=== PATIENT | female | born 1990 | race Caucasian/White ===

== ENCOUNTER 2016-12-14 17:20 | Emergency (ER) | payer SELFPAY ==
--- NOTE | 2016-12-14 17:39 | ERNOTE ---
Lower Extremity HPI - General Lower Extremities Pain: foot: left, 2nd toe: left - at the base of the toe Time Seen by Provider: 12/14/16 17:33 Source: patient Exam Limitations: no limitations - Immun/Allergies/Home Medications Immunizations: IMMUNIZATION HX Immunizations Up to Date Yes History of Influenza Vaccine No Allergies/Adverse Reactions: Allergies Allergy/AdvReac Type Severity Reaction Status Date / Time No Known Allergies Allergy Verified 12/14/16 17:30 Home Medications: HOME MEDICATIONS Naproxen [Naprosyn] 500 mg PO BID #60 tablet 12/14/16 [Last Taken Unknown] Sulfamethoxazole/Trimethoprim [Bactrim Ds] 1 tab PO BID #20 tab 12/14/16 [Last Taken Unknown] - History of Present Illness Narrative: Patient isn't sure what happened to the left foot at the base of the second and somewhat the third toe on the left foot. Possibly that she got bit by an insect. Patient denies any significant trauma. Occurred: other - past 2-3 days Location of Incident: home Method of Injury: Reports: no apparent injury Review of Systems - Review of Systems Constitutional: Present: See HPI EYE: Present: no symptoms reported ENT: Present: no symptoms reported Respiratory: Present: no symptoms reported Cardiology: Present: no symptoms reported Gastrointestinal/Abdominal: Present: no symptoms reported Genitourinary: Present: no symptoms reported Musculoskeletal: Present: joint pain Skin: Present: other - erythema around the affected toe Neurological: Present: no symptoms reported Endocrine: Present: no symptoms reported Hematologic/Lymphatic: Present: no symptoms reported Psych: Present: no symptoms reported - Patient's Past Medical History Patient History - Medical: No pertinent hx Patient History - Cardiac/Respiratory: No pertinent hx Patient History - Cancer: No Hx of Cancer Patient History - Surgical Procedures: Patient History - Other: None LMP (females 10-50): last week - Social History Living Situations: significant other Abuse History: No History of abuse Psych History: No pertinent hx Smoking Status: Current every day smoker Have you smoked in the past 12 months: Yes Do you dip or chew tobacco: No Alcohol Use: rarely Drug Use: none - Immunizations Immunizations Up to Date: Yes History of Influenza Vaccine: No Physical Exam - Physical Exam General Appearance: Present: wd/wn, alert, moderate distress Eye Exam: Normal inspection: bilateral, PERRL: bilateral Ears, Nose, Throat: Present: normal ENT inspection, H, normal pharynx Neck: Present: normal inspection, nontender Respiratory: Present: no respiratory distress, normal breath sounds, no accessory muscle use, chest nontender, lungs clear Cardiovascular/Chest: Present: regular rate, rhythm, no murmur, normal peripheral pulses Gastrointestinal/Abdominal: Present: normal bowel sounds, nontender, nondistended, soft, no organomegaly Rectal Exam: Present: deferred Back Exam: Present: normal inspection, normal range of motion Extremity Exam: Present: decreased range of motion, joint redness, joint swelling, extremity edema Neurological Exam: Present: alert, oriented, normal mood/affect Skin Exam: Present: normal color, warm/dry Lymphatic Exam: Present: no adenopathy ED Progress - Vital Signs Patient's Vital Signs:: I have reviewed the patient's vital signs. Vital Signs: Vital Signs 12/14/16 17:25 Temperature 36.8 C Pulse Rate 94 Respiratory 16 Rate O2 Sat by Pulse 99 Oximetry - X-Ray X-Ray #1 X-Ray: foot Interpretation: Reviewed by me - Progress/Reassessment Chief Complaint: Foot Injury/Pain Plan - Plan Plan: No obvious bony abnormality was noted on x-ray. Patient may have a very small area of cellulitis at the base of the second third toe on the left foot, and we will try a brief course of antibiotics and a nonsteroidal for any discomfort. Patient has no local doctor and she was encouraged to try to find one. Departure Clinical Impression: Cellulitis Qualifiers: Site of cellulitis: extremity Site of cellulitis of extremity: toe Laterality: left Qualified Code(s): L03.032 - Cellulitis of left toe - Departure Disposition: Home self-care Condition: Good Instructions: Cellulitis, Adult, [id number] Prescriptions: Naproxen [Naprosyn] 500 mg PO BID #60 tablet Sulfamethoxazole/Trimethoprim [Bactrim Ds] 1 tab PO BID #20 tab
--- OUTSIDE RECORDS SUMMARY | 2016-12-14 17:41 | XMS REPORT | Continuity of Care Document ---
:1990 Author Organization [email or web address] Address [place] [address] Care Team Providers Name Role Phone Autumn Fernandes Primary Care Provider [phone] Source Comments This disclosure is being made pursuant to the [employer] program and maynot contain all information available regarding this patient.[email or web address] Active Allergies and Adverse Reactions No Known Allergies Current Medications Be aware that medications may not be up to date as of this document. Alwaysverify current medications with the patient. Prescription Sig. Disp. Refills Start Date End Date Status ADDERALL XR, 30MG, 30 Take 30 mg by 0 09/24/2014 Active MG 24 hr capsule mouth every morning. ALPRAZolam (XANAX) 1 Take 1 tablet by 30 tablet 0 02/24/2015 Active MG tablet mouth 3 (three) times daily as needed. sulfamethoxazole-trime Take 1 tablet by 20 tablet 0 05/27/2015 Active thoprim (BACTRIM DS) mouth 2 (two) 800-160 MG per tablet times daily. 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 Tobacco use disorder 05/21/2014 Overview: Identified By: Autumn Fernandes Insomnia 05/22/2012 Overview: Identified By: Autumn Fernandes Headache 09/28/2011 Overview: Identified By: Nohelia Farr Depressive disorder 04/29/2011 Overview: Identified By: Hortensia Chong Routine general medical examination at a health care facility 07/23/2010 Social History Tobacco Use Types Packs/Day Years Used Date Current Every Day Smoker Smokeless Tobacco: Never Used Alcohol Use Drinks/Week oz/Week Comments Yes Last Filed Vital Signs Vital Sign Reading Time Taken Blood Pressure 100/60 05/27/2015 1:48 PM [facility] Pulse 122 05/27/2015 1:48 PM [facility] Temperature 37 C (98.6 F) 05/27/2015 1:48 PM [facility] Respiratory Rate 20 05/27/2015 1:48 PM [facility] Height 1.549 m (5' 1") 05/27/2015 1:48 PM [facility] Weight 52.164 kg (115 lb) 05/27/2015 1:48 PM [facility] Body Mass Index 21.74 05/27/2015 1:48 PM [facility] Oxygen Saturation 95% 05/27/2015 1:48 PM [facility] Plan of Care Health Maintenance Due Date Last Done Comments Pneumococcal Medium Risk 19-64 yo (1 of 1 - PPSV23) 10/18/2007 Tetanus/Pertussis (1 - Tdap) 10/18/2007 Pap Smear 2009 Influenza Immunization (#1) 2016 Results from Last 3 Months Not on file
--- OUTSIDE RECORDS SUMMARY | 2016-12-14 17:41 | XMS REPORT | Continuity of Care Document ---
:1990 Author Organization [facility] ([facility]) Address [address] [place] [address] Phone [phone] Care Team Providers Name Role Phone Autumn Fernandes Primary Care Provider [phone] Source Comments This disclosure is being made pursuant to the Care Everywhere program, applicable federal and state laws, and may not contain all informaitonavailable regarding this patient.[facility] ([facility]) Active Allergies and Adverse Reactions Not on File Current Medications Not on file Active Problems Problem Noted Date Palpitations 01/09/2004 Other dyspnea and respiratory abnormality 01/09/2004 Social History Tobacco Use Types Packs/Day Years Used Date Never Assessed Last Filed Vital Signs Vital Sign Reading Time Taken Blood Pressure - - Pulse - - Temperature - - Respiratory Rate - - Height 1.535 m (5' 0.43") 12/13/2003 6:14 AM CDT Weight 57.997 kg (127 lb 13.8 oz) 12/14/2003 9:00 AM CDT Body Mass Index 24.61 12/14/2003 9:00 AM CDT Oxygen Saturation - - Plan of Care Health Maintenance Due Date Last Done Comments Hepatitis B Vaccine (1 of 3 - Primary Series) 1990 Tdap Vaccine 10/18/1999 Cervical Cancer Screening 2006 Lipid Disorder Screening 2006 MMR Vaccine 2006 Td Vaccine 2006 Varicella Vaccine (1 of 2 - Adult - No Evidence of 2006 Immunity) Influenza Vaccine: Seasonal (#1) 02/23/2016 Results from Last 3 Months Not on file
--- OUTSIDE RECORDS SUMMARY | 2016-12-14 17:42 | XMS REPORT | CCD ---
:1990 Author Name ELIANA CORNEJO Address [address] [facility] Unavailable [place], [place] [id number] Care Team Providers Name Role Phone KAMILLE CORTES Attending Physician Unavailable KAMILLE CORTES Er Physician 1 Unavailable Vital Signs Unknown or Not Available. Allergies Allergy Code Allergy Type Reaction Status NO KNOWN DRUG ALLERGIES - NKDA 0 Drug allergy Active Procedures Procedure Code Procedure Type Date ABD 2 VWS INC CHEST 1VW [id number] SNOMED CT 11/29/2015 History of Immunizations Immunization Code Date DTP 05/12/1989 DTP 02/24/1989 DTP 1988 DTP 05/26/1990 OPV 02 02/23/1994 OPV 05/12/1989 OPV 02/24/1989 OPV 02 1988 MMR 03 02/23/1994 MMR 03 01/26/1990 Hep B, adolescent or pediatric 08 11/05/2004 Hep B, adolescent or pediatric 08 05/21/2004 Hep B, adolescent or pediatric 08 04/09/2004 Hib, unspecified formulation 17 04/09/2004 Hib, unspecified formulation 17 02/02/1990 DT (pediatric) 28 09/23/2004 DTaP, unspecified formulation 107 02/23/1994 no vaccine administered 998 1988 Problems Unknown or Not Available. Results COMPREHENSIVE METABOLIC PANEL - Collect Date/Time: 11/29/2015 10:30 Test Name Code Test Result Test Units Test Ref Range GLUCOSE 101 mg/dL L=74 H=106 SODIUM 140 mmol/L L=136 H=145 POTASSIUM 4.2 mmol/L L=3.5 H=5.1 CHLORIDE 104 mmol/L L=98 H=107 CO2 27 mmol/L L=21 H=32 BUN 7.0 mg/dL L=7.0 H=18.0 CREATININE 0.7 mg/dL L=0.6 H=1.0 BUN/CREAT 10.0 L=7.6 H=21.2 CALCIUM 8.9 mg/dL L=8.6 H=10.1 TOTAL BILI 0.3 mg/dL L=0.2 H=1.0 TOTAL PROTEIN 8.2 g/dL L=6.4 H=8.2 ALBUMIN 4.2 g/dL L=3.4 H=5.0 A/G RATIO 1.0 ALKALINE PHOS 68 IU/L L=50 H=136 AST/SGOT 10 IU/L L=15 H=37 ALT/SGPT 28 IU/L L=12 H=78 ANION GAP 12.8 mmol/L L=7.0 H=16.0 AGE 25 YEARS GFR 106.69 ml/min CRP - Collect Date/Time: 11/29/2015 10:30 Test Name Code Test Result Test Units Test Ref Range CRP 0.9 mg/dL L=0.2 H=0.9 LACTIC ACID, PLASMA - Collect Date/Time: 11/29/2015 10:30 Test Name Code Test Result Test Units Test Ref Range LACTIC ACID 0.7 mmol/L L=0.4 H=2.0 LIPASE - Collect Date/Time: 11/29/2015 10:30 Test Name Code Test Result Test Units Test Ref Range LIPASE 67 U/L L=73 H=393 MAGNESIUM, SERUM OR PLASMA - Collect Date/Time: 11/29/2015 10:30 Test Name Code Test Result Test Units Test Ref Range MAGNESIUM 1.8 mg/dL L=1.8 H=2.4 RAPID URINE DRUG SCREEN - Collect Date/Time: 11/29/2015 10:30 Test Name Code Test Result Test Units Test Ref Range CANNABINOIDS (THC) NEGATIVE N/A NORMAL:Negative OPIATES POSITIVE N/A NORMAL:Negative AMPHETAMINES NEGATIVE N/A NORMAL:Negative COCAINE NEGATIVE N/A NORMAL:Negative TRICYCLIC ANTIDEPRES NEGATIVE N/A NORMAL:Negative BARBITURATES NEGATIVE N/A NORMAL:Negative METHADONE NEGATIVE N/A NORMAL:Negative BENZODIAZEPINES NEGATIVE N/A NORMAL:Negative PROPOXYPHENE NEGATIVE N/A NORMAL:Negative METHAMPHETAMINE NEGATIVE N/A NORMAL:Negative CBC W/DIFF - Collect Date/Time: 11/29/2015 10:30 Test Name Code Test Result Test Units Test Ref Range WBC 6690-2 9.7 K/uL L=3.2 H=10.0 RBC 789-8 4.38 M/uL L=4.00 H=5.20 HEMOGLOBIN 718-7 13.7 g/dL L=12.1 H=15.6 HEMATOCRIT 40.3 % L=35.0 H=47.0 MCV 92.0 fL L=81.0 H=101 MCH 31.3 PG L=26.0 H=38.0 MCHC 34.0 G/DL L=31.0 H=37.0 RDW-SD 41.4 FL L=37.0 H=54.0 RDW-CV 12.6 % L=11.0 H=16.0 PLATELETS 777-3 324 K/UL L=140 H=380 MPV 8.9 FL L=9.0 H=13.0 %GRAN 74.4 % L=0.0 H=75.0 %LYMPH 18.6 % L=0.0 H=50.0 %MONO 5.5 % L=0.0 H=14.0 %EOS 1.4 % L=0.0 H=6.0 %BASO 0.1 % L=0.0 H=1.0 #GRAN 7.18 K/UL L=1.80 H=7.80 #LYMPH 1.80 K/UL L=0.30 H=4.00 #MONO 0.53 K/UL L=0.00 H=0.70 #EOS 0.14 K/UL L=0.00 H=0.40 #BASO 0.01 K/UL L=0.00 H=0.10 SLIDE REVIEWED? NOT INDICATED N/A MANUAL DIFF NOT INDICATED N/A UA W/MICROSCOPIC EXAM - Collect Date/Time: 11/29/2015 10:30 Test Name Code Test Result Test Units Test Ref Range COLOR UR Yellow N/A NORMAL:YELLOW CLARITY UR Clear N/A NORMAL:CLEAR SP GRAV UR 1.025 N/A NORMAL:1.000-1.030 PH UR 5.0 N/A NORMAL:5.0-8.5 PROTEIN UR Negative N/A NORMAL:NEGATIVE GLUCOSE UR Negative N/A NORMAL:NEGATIVE KETONE UR Negative N/A NORMAL:NEGATIVE BILIRUBIN UR Negative N/A NORMAL:NEGATIVE BLOOD UR Negative N/A NORMAL:NEGATIVE LEUK UR Negative N/A NORMAL:NEGATIVE NITRITE UR Negative N/A NORMAL:NEGATIVE MICRO SEE BELOW N/A RBC/hpf 0 N/A NORMAL:0-5/hpf WBC/hpf 0-1 N/A NORMAL:0-10/hpf EPI UR 10-20 N/A NORMAL:NONE SEEN BACTERIA UR RARE N/A NORMAL:NONE SEEN MUCOUS NONE SEE N/A NORMAL:NONE SEEN CAST NONE SEE N/A CRYSTALS NONE SEE N/A CULTURE? NO N/A HCG QUALITATIVE, URINE - Collect Date/Time: 11/29/2015 10:30 Test Name Code Test Result Test Units Test Ref Range BHCG, URINE NEGATIVE N/A Active Medications Unknown or Not Available. Medications Administered During Visit Unknown or Not Available. Encounters Encounter Diagnosis Diagnosis Code Start Date Nausea with vomiting, unspecified R112 11/29/2015 Social History Smoking Status Code Start Date End Date Never smoker [id number] Patient Decision Aids Unknown or Not Available. Discharge Instructions You were admitted to [facility] on 11/29/2015 09:48 with a principal diagnosis of Nausea with vomiting, unspecified You had the following tests done:CBC W/DIFFCOMPREHENSIVE METABOLIC PANELCRPHCG QUALITATIVE, URINELACTIC ACID, PLASMALIPASEMAGNESIUM, SERUM OR PLASMARAPID URINE DRUG SCREENUA W/MICROSCOPIC EXAM You were discharged from [facility] on 11/29/2015 11:41 Should you have any questions prior to discharge, please contact a member of your healthcare team. If you have left the hospital and have any questions, please contact your primary care physician. Chief Complaint and Reason For Visit Chief Complaint Date of Onset ABDOMINAL PAIN WITH VOMITING Function Status Unknown or Not Available. Plan of Care Unknown or Not Available. Referral/Transition of Care Unknown or Not Available.
--- OUTSIDE RECORDS SUMMARY | 2016-12-14 17:42 | XMS REPORT | CCD ---
:1990 Author Name ELIANA CORNEJO Address [address] [facility] Unavailable [place], [place] [id number] Care Team Providers Name Role Phone BRANDIN NOVAK Attending Physician Unavailable BRANDIN NOVAK Er Physician 1 Unavailable Vital Signs Unknown or Not Available. Allergies Allergy Code Allergy Type Reaction Status NO KNOWN DRUG ALLERGIES - NKDA 0 Drug allergy Active Procedures Unknown or Not Available. History of Immunizations Immunization Code Date DTP 05/12/1989 DTP 02/24/1989 DTP 1988 DTP 05/26/1990 OPV 02 02/23/1994 OPV 05/12/1989 OPV 02/24/1989 OPV 1988 MMR 02/23/1994 MMR 03 01/26/1990 Hep B, adolescent or pediatric 08 11/05/2004 Hep B, adolescent or pediatric 08 05/21/2004 Hep B, adolescent or pediatric 08 04/09/2004 Hib, unspecified formulation 17 04/09/2004 Hib, unspecified formulation 17 02/02/1990 DT (pediatric) 28 09/23/2004 DTaP, unspecified formulation 107 02/23/1994 no vaccine administered 998 1988 Problems Unknown or Not Available. Results ALCOHOL - Collect Date/Time: 12/06/2015 17:30 Test Name Code Test Result Test Units Test Ref Range ALCOHOL <3.00 mg/dL RAPID URINE DRUG SCREEN - Collect Date/Time: 12/06/2015 17:30 Test Name Code Test Result Test Units Test Ref Range CANNABINOIDS (THC) NEGATIVE N/A NORMAL:Negative OPIATES POSITIVE N/A NORMAL:Negative AMPHETAMINES POSITIVE N/A NORMAL:Negative COCAINE POSITIVE N/A NORMAL:Negative TRICYCLIC ANTIDEPRES NEGATIVE N/A NORMAL:Negative BARBITURATES NEGATIVE N/A NORMAL:Negative METHADONE NEGATIVE N/A NORMAL:Negative BENZODIAZEPINES NEGATIVE N/A NORMAL:Negative PROPOXYPHENE NEGATIVE N/A NORMAL:Negative METHAMPHETAMINE NEGATIVE N/A NORMAL:Negative Active Medications Unknown or Not Available. Medications Administered During Visit Unknown or Not Available. Encounters Encounter Diagnosis Diagnosis Code Start Date Opioid abuse, uncomplicated [id number] 12/06/2015 Social History Smoking Status Code Start Date End Date Never smoker [id number] Patient Decision Aids Unknown or Not Available. Discharge Instructions You were admitted to [facility] on 12/06/2015 17:03 with a principal diagnosis of Opioid abuse, uncomplicated You had the following tests done:ALCOHOLRAPID URINE DRUG SCREEN You were discharged from [facility] on 12/06/2015 17:56 Should you have any questions prior to discharge, please contact a member of your healthcare team. If you have left the hospital and have any questions, please contact your primary care physician. Chief Complaint and Reason For Visit Chief Complaint Date of Onset POSS COMMITTAL Function Status Unknown or Not Available. Plan of Care Unknown or Not Available. Referral/Transition of Care Unknown or Not Available.
[2016-12-14] MEDS ORDERED: NAPROXEN SODIUM 550 MG TABLET PO ONE (18:32)
[2016-12-14] MEDS ORDERED: NAPROXEN SODIUM 550 MG TABLET ONE (18:33)
[2016-12-14 18:53] VITALS: BP 126/82
== END 2016-12-14 18:51 | disposition home or self-care (01) ==
LOC: ER 17:20
DX: L03.032 Cellulitis of left toe (principal); F17.200 Nicotine dependence, unspecified, uncomplicated